=== PATIENT | female | born 1940 | race Caucasian/White ===

== ENCOUNTER 2018-06-14 11:45 | Day surgery (SDC) | payer OTHER ==
[~2018-06-14] VITALS: Ht 160 cm; Wt 91.6 kg
== END 2018-06-14 14:17 | disposition home or self-care (01) ==
LOC: ORSCMMR 11:45 → ORD 15:00
PROVIDERS: Student in an Organized Health Care Education/Training Program
PROC: 0DJD8ZZ Inspection of Lower Intestinal Tract, Via Natural or Artificial Opening Endoscopic (ICD-10-PCS; principal; 2018-06-14 13:15)
DX: Z12.11 Encounter for screening for malignant neoplasm of colon (principal); K57.30 Diverticulosis of large intestine without perforation or abscess without bleeding; K64.8 Other hemorrhoids; Z80.0 Family history of malignant neoplasm of digestive organs
CPT/HCPCS: J7120

== ENCOUNTER 2018-08-11 05:44 | Day surgery (SDC) | payer OTHER ==
[~2018-08-11] VITALS: Ht 165.1 cm; Wt 89.8 kg
[~2018-08-11 05:44] MED LIST: DIPH50 PO; Flonase 0.05% N16 GM; NAPR220 PO
[2018-08-11] MEDS ORDERED: IBUPROFEN200 MG PO (06:32)
--- NOTE | 2018-08-11 06:45 | NUR ---
PT ADMITTED TO [facility]. AGREES WITH PLANNED SURGERY. MEDS, ALLERGIES AND HX REVIEWED. LUNG SOUNDS CLEAR.
--- NOTE | 2018-08-11 19:18 | NUR ---
SUMMARY REPORTS PAIN IS TOLERABLE WITH OXYCODONE, AMBULATED TO THE BATHROOM WITH PT, TOLERATED WELL, OOB TO RECLINER W/ POLAR PACK, DSG C/D/I, TOLERATED REGULAR DIET, VSS, NO ACUTE CHANGES THIS SHIFT.
[2018-08-12 04:11] LABS: BASOPHILS ABSOLUTE AUTO 0.02 K/mm3 (0.00-0.23); BASOPHILS PERCENT AUTO 0 % (0-2); EOSINOPHILS PERCENT AUTO 0 % (0-6); Hematocrit 33.9 % (33.0-51.0); Hemoglobin 11.1 g/dL (11.5-16.0); IMMATURE GRAN ABSOLUTE AUTO 0.04 K/mm3 (0.00-0.10); IMMATURE GRAN PERCENT AUTO 0 % (0-1); LYMPHOCYTES ABSOLUTE AUTO 0.74 K/mm3 (0.84-5.20); LYMPHOCYTES PERCENT AUTO 6 % (21-46); MONOCYTES ABSOLUTE AUTO 1.13 K/mm3 (0.16-1.47); MONOCYTES PERCENT AUTO 9 % (4-13); Mean Corpuscular HGB 30.7 pg (26.0-34.0); Mean Corpuscular HGB Conc 32.7 g/dL (31.5-36.5); Mean Corpuscular Volume 94 fL (80-100); Mean Platelet Volume 11.4 fL (9.1-12.4); NEUTROPHILS ABSOLUTE AUTO 10.66 K/mm3 (1.96-9.15); NEUTROPHILS PERCENT AUTO 85 % (41-73); Platelet Count 197 K/mm3 (150-400); RDW Coefficient Variation 13.1 % (11.7-14.2); RDW Standard Deviation 45.1 fL (35.1-46.3); Red Blood Cell Count 3.61 M/mm3 (3.80-5.20); White Blood Cell Count 12.59 K/mm3 (4.00-11.30)
--- NOTE | 2018-08-12 04:31 | NUR ---
SHIFT SUMMARY PT IS POD 1 LEFT TKA. SHE AMBULATED IN THE HALLS THIS SHIFT, ONCE IN THE EVENING AND ONCE THIS MORNING. PAIN MANAGED PER EMAR. SHE REPORTS SORENESS THIS MORNING. PT VOIDING WITHOUT ISSUE NOW. A&O, ABLE TO MAKE NEEDS KNOWN. WILL CTM UNTIL PASS TO NEXT SHIFT.
[2018-08-12 04:38] LABS: Anion Gap 9 mmol/L (6-16); Blood Urea Nitrogen 24 mg/dL (8-24); Bun/Creatinine Ratio 26.4 (12.0-20.0); CO2, Blood 24 mmol/L (21-32); Chloride, Blood 104 mmol/L (98-108); Creatinine, Blood 0.91 mg/dL (0.40-1.00); Glomerular Filtration Rate >60 (60-); Glucose, Blood 142 mg/dL (70-99); Magnesium, Blood 2.3 mg/dL (1.6-2.4); Potassium, Blood 4.1 mmol/L (3.5-5.5); Sodium, Blood 137 mmol/L (136-145)
[2018-08-12] MEDS ORDERED: ENOX40I SC (08:37)
[2018-08-12] MEDS ORDERED: OXYC5 PO (08:40)
== END 2018-08-12 11:52 | disposition home or self-care (01) ==
LOC: ORSCMMR 05:44 → ORD 07:30 → SURS 10:45 → ORSCMMR 08-12 11:52
PROVIDERS: Orthopaedic Surgery
PROC: 8E0YXBZ Computer Assisted Procedure of Lower Extremity (ICD-10-PCS; principal; 2018-08-11 07:30)
PROC: 0SRD0J9 Replacement of Left Knee Joint with Synthetic Substitute, Cemented, Open Approach (ICD-10-PCS; principal; 2018-08-11 07:30)
DX: M17.12 Unilateral primary osteoarthritis, left knee (principal); E66.9 Obesity, unspecified; Z68.32 Body mass index [BMI] 32.0-32.9, adult
CPT/HCPCS: 36415; 73560-LT; 80048; 83735; 85025; 88300; 97110; 97116; 97162; 97530; C1713; C1776; J0171; J0690; J0735; J1100; J1650; J1885; J2250; J2370; J2405; J2795; J3010; J3370; J7120